=== PATIENT | female | born 2000 | race American Indian/Alaskan Native ===

== ENCOUNTER 2021-07-01 13:12 | Outpatient (CLI) | payer MEDICAID ==
[2021-07-01 13:51] VITALS: BP 111/63
[2021-07-01] MEDS ORDERED: LACTATED RINGERS 1,000 ML IV ONE (15:00)
[2021-07-01 15:23] LABS: Bilirubin,Urine NEG (Negative); Blood,Urine NEG (Negative); Color,Urine Yellow (Yellow); Mucus,Urine FEW /HPF; Protein,Urine <15 mg/dL mg/dL (Negative); Urobilinogen,Urine < 2.0 mg/dL (<2.0)
== END 2021-07-01 16:30 | disposition home or self-care (01) ==
LOC: TRG 13:12 → APU 13:14 → TRG 16:30
PROVIDERS: ATTEND Obstetrics & Gynecology
DX: O26.853 Spotting complicating pregnancy, third trimester (principal); Z3A.28 28 weeks gestation of pregnancy
CPT/HCPCS: 81001; 87086